=== PATIENT | female | born 1985 ===

== ENCOUNTER 2018-04-16 18:55 | Inpatient (IN) | payer OTHER ==
[2018-04-16] MEDS ORDERED: Penicillin G 5 Million Unit Vial IVPB ONE ×2 (19:24→19:39)
[2018-04-16] MEDS ORDERED: Oxytocin 30 UNIT 30 UNITS/500 ML BAG IV ONE ×2 (19:27→19:39)
[2018-04-16 19:31] VITALS: BMI 31.8
--- NOTE | 2018-04-16 19:33 | OBADHP ---
Datetime: 04/16/2018 19:27 Admit Comment, IP Provider: at 41weeks some pnc with no records came with c/o srom at 5 pm. pt was supposed to be induce in [facility] .c/o ctxs irr, no vb +fm obhx 3 x pmh de med pnv alll nkda ph de soch de ve 2-/-2 ssse +pool +nit a/p at 41weeks prom/labor admit o l_d npo/ivf labs pain man cont lior and efm pen g u dug screen anticiate Pelvic Type - PN: Adequate Extremities - PN: Normal Abdomen - PN: Normal Back - PN: Normal Breast - PN: Normal Lungs - PN: Normal Heart - PN: Normal Thyroid - PN: Normal Neurologic - PN: Normal HEENT - PN: Normal General - PN: Normal Amniotic Fluid Color, Provider: Clear Membranes, Provider: Ruptured Contraction Comments Provider: q1-4 IP Hx Assessment: No Care Vital Signs Provider: Within Normal Limits IP Chief Complaint: Uterine contractions; Suspected ruptured membranes Dilatation, Provider: 2 Effacement, Provider: 70 Station, Provider: -2 Genitourinary Exam: Normal DTRs - PN: Normal EGA AdmitDate IP: 41.0 IP Adm Impression: Term, intrauterine ; Ruptured Membranes IP Admit Plan: Admit to unit; Initiate labor protocol
[2018-04-16 20:28] LABS: BASO % 0.6 % (0.0-2.0); EOS # 0.2 K/uL (0.0-0.7); EOS % 3.1 % (0.0-4.0); HEMOGLOBIN 12.6 g/dL (11.0-16.0); LYMPH # 1.2 K/uL (1.0-4.3); LYMPH % 14.5 % (20.0-40.0); MEAN CELL VOLUME 78.1 fL (81.0-99.0); MEAN CORPUSCULAR HEMOGLOBIN 25.3 pg (27.0-31.0); MEAN CORPUSCULAR HGB CONC 32.4 g/dL (33.0-37.0); MEAN PLATELET VOLUME 7.4 fL (7.2-11.7); MONO # 0.6 K/uL (0.0-0.8); MONO % 7.1 % (0.0-10.0); NEUT % 74.7 % (50.0-75.0); NRBC % 0.1 % (0.0-2.0); RED CELL DISTRIBUTION WIDTH 16.9 % (11.5-14.5)
[2018-04-16 20:39] LABS: RAPID PLASMA REAGIN NONREACTIVE (NONREACTIVE)
[2018-04-16 20:40] LABS: SQUAMOUS EPITHIAL 3 /hpf (0-5); URINE AMORPHOUS SEDIMENT RARE /ul (<OCC); URINE BACTERIA RARE (<OCC); URINE BILIRUBIN NEGATIVE (NEGATIVE); URINE BLOOD NEGATIVE (NEGATIVE); URINE CLARITY Hazy (Clear); URINE COLOR Yellow (YELLOW); URINE GLUCOSE (UA) NORMAL (Normal); URINE LEUKOCYTE ESTERASE NEG Leu/uL (Negative); URINE PROTEIN NEGATIVE (NEGATIVE)
[2018-04-16 20:45] LABS: ALB/GLOB RATIO 1.3 (1.0-2.1); ALBUMIN 3.8 g/dL (3.5-5.0); ALT/SGPT 16 U/L (9-52); AST/SGOT 26 U/L (14-36); BLOOD UREA NITROGEN 7 mg/dL (7-17); CALCIUM 9.3 mg/dl (8.6-10.4); GFR NON-AFRICAN AMERICAN > 60
[2018-04-16] MEDS ORDERED: Nalbuphine HCL 10 mg/ml Ampule IVP PRN (20:59)
[2018-04-16 21:16] LABS: HEPATITIS B SURFACE AG Negative (NEGATIVE)
[2018-04-16] MEDS ORDERED: Nalbuphine HCL 10 mg/ml Ampule ONE (21:35)
--- NOTE | 2018-04-17 06:12 | OBPN ---
Datetime: 04/17/2018 06:10 IP Progress Impression: Normal progression of labor IP Procedures: Sterile Vag Exam Contraction Comments Provider: q1-4 FHR - Baseline A Provider: 130 IP Progress Note Comment: pt was examined at bed side ve fd/100/0 pt pushing her self Vital Signs Provider: Reviewed; Within Normal Limits NICHD Accel Fetus A IP Provider: 15X15 FHR Category Provider Fetus A: Category I NICHD Variability Prov Fetus A: Moderate 6-25bpm Dilatation, Provider: 10 Effacement, Provider: 100 Station, Provider: 0 Datetime: 04/16/2018 19:27 Membranes, Provider: Ruptured Amniotic Fluid Color, Provider: Clear
[2018-04-17] MEDS ORDERED: cefOXitin IV 2 gm in Dextrose 0 GM/0 ML BAG IVPB ONE (07:09)
[2018-04-17] MEDS ORDERED: Sodium Citrate/Citric Acid 15 ml Sol ONE (07:10)
[2018-04-17] MEDS ORDERED: Lidocaine 2% MPF (5 ml) Inj ONE ×4 (08:17→08:37)
[2018-04-17] MEDS: Oxycodone/Acetaminophen 5/325 mg Tab PO PRN ×2 (12:04→22:18)
--- NOTE | 2018-04-17 15:45 | OBDS ---
DELIVERY PERSONNEL Delivery Doctor: Allen Roche MD Staff Educator: JOSÉ moon Resident: Dr Eng MATERNAL INFORMATION Delivery Anesthesia: Local Medications in Delivery: pitocin Estimated Blood Loss (ml): 700 Placenta Cultured: No Maternal Complications: None Provider Comments: Patient is a G4 now P4 who delivered a viable male via vacuum assisted va ginal delivery over right mediolateral episiotomy. The infant's head was delivered in a controlled ma nner. Vacuum was then released. Loose nuchal cord x 1; easily reduced over the head. Infant's shoulde r's were delivered atraumatically. Infant's mouth and nose were suctioned with bulb syringe. Cord was doiubly clamped and cut. Cord gases and cord blood were collected and sent to the lab. An intact 3 v essel cord placenta was delivered. Mom and recovering in stable condition. Dr. Roche was pre sent for the entire delivery. Chely Eng DO PGY-2 Attending Note: I was present for the entire delivery having performed the vacuum-assist, as descr ibed above. I agree with the above as documented. LABOR SUMMARY EDC: 04/09/2018 00:00 No. Babies in Womb: 1 Attempted: No Labor Anesthesia: None LABOR INFORMATION Onset of Labor: 04/16/2018 16:00 Complete Dilatation: 04/17/2018 05:00 Other Ripening Agents: n/a Oxytocin: Induction Group B Beta Strep: UNKNOWN Antibiotics # of Doses: 3 Antibiotics Time of Last Dose: 0300 Steroids Given: None MEMBRANES Membranes Rupture Method: Spontaneous Rupture of Membranes: 04/16/2018 17:30 Length of Rupture (hrs): 14.53 Amniotic Fluid Color: Clear Amniotic Fluid Amount: Large Amniotic Fluid Odor: Normal STAGES OF LABOR Stage 1 hrs: 13 Stage 1 min: 0 Stage 2 hrs: 3 Stage 2 min: 2 Stage 3 hrs: 0 Stage 3 min: 13 Total Time in Labor hrs: 16 Total Time in Labor min: 15 VAGINAL DELIVERY Episiotomy: Right Mediolateral Laceration Extension: N/A Laceration Type: None Laceration Repair Note: Right mediolateral episiotomy was repaired with 2-0 vicryl, 2-0 chromic, and 3-0 chromic with anatomic reapproximation. Hemostasis achieved. Initial Vag Sharps Count: 4 Final Vag Sharps Count: 4 Sponge Count Correct: Yes Sharps Count Correct: Yes BABY A INFORMATION Infant Delivery Date/Time: 04/17/2018 08:02 Method of Delivery: Vaginal Born in Route : No : N/A Forceps: N/A Vacuum Extraction: Successful Shoulder Dystocia : No SHOULDER DYSTOCIA BABY A Infant Delivery Date/Time: 04/17/2018 08:02 PRESENTATION/POSITION BABY A Presentation: Cephalic Cephalic Presentation: Vertex Vertex Position: Left Occipital Anterior Breech Presentation: N/A PLACENTA INFORMATION BABY A Placenta Delivery Time : 04/17/2018 08:15 Placenta Method of Delivery: Spontaneous Placenta Status: Delivered SCORES BABY A Heart Rate 1 min: >100 bpm Resp Effort 1 min: Good Cry Reflex Irritability 1 min: Cough or Sneeze or Pulls Away Muscle Tone 1 min: Active Motion Color 1 min: Body [place], Extremities Blue Resuscitation Effort 1 min: Tactile Stimulation SCORE 1 MIN: 9 Heart Rate 5 min: >100 bpm Resp Effort 5 min: Good Cry Reflex Irritability 5 min: Cough or Sneeze or Pulls Away Muscle Tone 5 min: Active Motion Color 5 min: Body [place], Extremities Blue Resuscitation Effort 5 min: Tactile Stimulation SCORE 5 MIN: 9 INFANT INFORMATION BABY A Gestational Age at Delivery: 41.1 Gestational Status: Post-term Infant Outcome : Liveborn Infant Condition : Stable Sex: Male IDENTIFICATION/MEDS BABY A ID Band Number: [id number] ID Band Location: Right Leg; Left Leg Sensor Applied: Yes Sensor Number: [id number] Sensor Location : Cord Clamp Vitamin K Given : Aquamephyton 1 mg IM Erythromycin Given: Given Both Eyes WEIGHT/LENGTH BABY A Birthweight (gms): 4020 Weight (lb): 8 Infant Weight (oz): 14 Length Inches: 21.75 Infant Length cms: 55.2 CORD INFORMATION BABY A No. Cord Vessels: 3 Nuchal Cord : Around Neck x1, Tight Cord Blood Taken: Yes Suction: Mouth; Nose ASSESSMENT BABY A Infant Complications: None Physical Findings at Delivery: Caput Succedaneum Respirations: Appears Normal Pharmacist Hospital[facility] Called : No Care By: Dr Marinelli Transferred To: Remains with Mother
--- NOTE | 2018-04-17 19:00 | OBPPN ---
Datetime: 04/17/2018 18:44 PP Progress Note Prov: Notified by R.N. - patient c/o tingling "from the knee to my toes" on the lef t Patient received in bed, room 462, on her chest ([id number]); patient's mother also pres ent Patient reports the "tingling" sensation started at approximately 0200 hours, while in active labo r and prior to full dilatation and pushing. Patient describes the following sensations: "pins and nee dles, like when you sit with your legs cross-legged and it falls asleep. You know it's there, but it doesn't feel quite like it". Patient has been out of bed to the bathroom, voiding without difficult. Reports "I know my leg is there, because I am looking at it, but I don't feel it." re: motor strength - reports had one episode of her left leg "buckling" under her. "I put all my weight on my right leg " Limited P.E.: - Extremities: symmetric. no calf tenderness. Good color. Warm; (+) pedal pulses. Decreased sensat ion to "pinprick" with a pen. Decreased motor strength when compared to right (upon command to "pres s gas pedal") Assessment: PPD#0, 32 y.o. , S/P vacuum-assisted vaginal delivery with decreased sensory and motor strength of left lower extremitiy. Patient advised to have assistance in ambulating. Will obta in consultation with neurology for the morning. Patient expressed an understanding and agrees. Patie nt otherwise clinically stable. Plan: 1) Continue post care 2) Consult Neurology - Dr. Liam Duncan. Voice message left on [phone] at approximately 1840 hour s.
[2018-04-17] MEDS ORDERED: Albuterol HFA 90 mcg/actuation (8 g) INH PRN (22:38)
[2018-04-18] MEDS: Oxycodone/Acetaminophen 5/325 mg Tab PO PRN ×2 (06:36→21:39)
[2018-04-18 07:33] LABS: BASO # 0.1 K/uL (0.0-0.2); BASO % 0.4 % (0.0-2.0); EOS % 0.3 % (0.0-4.0); LYMPH # 1.8 K/uL (1.0-4.3); LYMPH % 12.2 % (20.0-40.0); MEAN CELL VOLUME 77.8 fL (81.0-99.0); MEAN CORPUSCULAR HGB CONC 33.5 g/dL (33.0-37.0); MEAN PLATELET VOLUME 7.5 fL (7.2-11.7); MONO % 6.7 % (0.0-10.0); NEUT # 11.9 K/uL (1.8-7.0); NEUT % 80.4 % (50.0-75.0); RBC 3.56 Mil/uL (3.80-5.20); RED CELL DISTRIBUTION WIDTH 16.4 % (11.5-14.5)
[2018-04-18 07:42] LABS: WHITE BLOOD COUNT 14.8 K/uL (4.8-10.8)
[2018-04-18 07:43] LABS: HEMOGLOBIN 9.3 g/dL (11.0-16.0)
[2018-04-18 07:56] LABS: ALB/GLOB RATIO 1.1 (1.0-2.1); ALBUMIN 2.6 g/dL (3.5-5.0); ALT/SGPT 25 U/L (9-52); AST/SGOT 73 U/L (14-36); BLOOD UREA NITROGEN 3 mg/dL (7-17); CALCIUM 8.7 mg/dl (8.6-10.4); GFR NON-AFRICAN AMERICAN > 60
[2018-04-18] MEDS: Potassium Chloride 20 mEq ER Tab PO SCH (09:43)
--- NOTE | 2018-04-18 11:50 | OBPPN ---
Datetime: 04/18/2018 07:37 PP Pain Prov: Within normal limits PP Nausea Prov: Denies PP Flatus Prov: Yes PP BM Prov: No PP Heart Prov: Normal PP Lungs Prov: Normal PP Abdomen/Uterus Prov: Normal PP Lochia Prov: Normal PP Extremities Prov: Abnormal PP C/S Incision Prov: Not Applicable PP Progress Prov: Normal PP Comments Phys Exam Prov: VSS Gen: AAOx3 in NAD lying comfortably in bed with baby Heart: RRR no murmurs appreciated Eyes: petechial hemmorhage noted bilaterally, denies blurry vision Abd: Soft, appropriately tender, + BS, fundal height 2 fingerbreadths above umbilicus presently Ext: no calf tenderness b/l, numbness in LLE from just above ankle distally, decreased sensation t o pinprick, patient reports improvement from yesterday. Plantarflexion 2/5, ROM limited, decreased se nsation along with pins and needles. DTR normal bilaterally. + pedal pulses. PP Impression Prov: Normal progression; Pain PP Plan Prov: Continue present management PP Progress Note Prov: Patient seen and examined at bedside. Patient complains of pain from the sutu res and an inability to sit directly on her buttock. Patient also reports numbness in LLE. Patient on Motrin and Percocet for pain control. Tolerating regular diet. Patient exclusively breast feeding. M inimal lochia reported. Denies chest pain, shortness of breath, fevers, chills. A_P: 32 F PPD#1 s/p R mediolateral episiotomy and vacuum assisted vaginal delivery of liveborn mal e - Stable - AM labs show signs of anemia > Oral Fe inititated. Leukocytosis likely due to marginalization. F /U repeat AM lab - Hypokalemia noted, repleted. F/U repeat AM lab - Encouraged patient to take her Motrin q6 and ask for Percocet as needed if pain uncontrolled - Encourage , ambulation only with assistance and observation when needing to use bat hroom. Fall precautions. Awaiting Neurology input for LLE complaints - Rectal hemmorhoids noted - Anusol prescribed. - Follow up control plans Patient seen, case reviewed and plan approved by Dr. Perez. Santi Whaley, PGY-1 Vital Signs Provider PP: Reviewed; Within Normal Limits
[2018-04-18] MEDS: Hydrocortisone 2.5% Rectal Cream(30 gm) PR SCH ×3 (12:45→21:38)
--- NOTE | 2018-04-18 17:40 | CP.PCM.CON ---
History of Present Illness - History of Present Illness History of Present Illness: Neurology Consultation Note: Consult requested by Dr. Kline Ms. Ivy is a 32-year-old woman who is s/p vaginal delivery that took place yesterday and at around 02:00 this morning, she complained of left lower extremity numbness and weakness. The patient states that the labor lasted about 14 hours and she did not use any anesthesia. She attempted to walk today, but fell due to weakness of the left leg. She has a hard time with hip flexion, knee flexion, foot eversion and feels that the lower part of her leg is numb. Review of Systems - Constitutional Constitutional: As Per HPI - EENT Eyes: absent: As Per HPI, Blind Spots, Blurred Vision, Change in Vision, Decreased Night Vision, Diplopia, Discharge, Dry Eye, Exophthalmos, Floaters, Irritation, Itchy Eyes, Loss of Peripheral Vision, Pain, Photophobia, Requires Corrective Lenses, Sees Flashes, Spots in Vision, Tunnel Vision, Other Visual Disturbances, Loss of Vision, Other Ears: absent: As Per HPI, Decreased Hearing, Ear Discharge, Ear Pain, Tinnitus, Abnormal Hearing, Disequilibrium, Dizziness, Other Nose/Mouth/Throat: absent: As Per HPI, Epistaxis, Nasal Congestion, Nasal Discharge, Nasal Obstruction, Nasal Trauma, Nose Pain, Post Nasal Drip, Sinus Pain, Sinus Pressure, Bleeding Gums, Change in Voice, Dental Pain, Dry Mouth, Dysphagia, Halitosis, Hoarsness, Lip Swelling, Mouth Lesions, Mouth Pain, Odynophagia, Sore Throat, Throat Swelling, Tongue Swelling, Facial Pain, Neck Pain, Neck Mass, Other - Cardiovascular Cardiovascular: absent: As Per HPI, Acrocyanosis, Chest Pain, Chest Pain at Rest, Chest Pain with Activity, Claudication, Diaphoresis, Dyspnea, Dyspnea on Exertion, Edema, Irregular Heart Rhythm, Pain Radiating to Arm/Neck/Jaw, Leg Edema, Leg Ulcers, Lightheadedness, Orthopnea, Palpitations, Paroxysmal Nocturnal Dyspnea, Pedal Edema, Radiating Pain, Rapid Heart Rate, Slow Heart Rate, Syncope, Other - Respiratory Respiratory: absent: As Per HPI, Cough, Dyspnea, Hemoptysis, Dyspnea on Exertion, Wheezing, Snoring, Stridor, Pain on Inspiration, Chest Congestion, Excessive Mucous Production, Change in Mucous Color, Pain with Coughing, Other - Menstruation Menstruation: As Per HPI - Musculoskeletal Musculoskeletal: absent: As Per HPI, Abnormal Gait, Arthralgias, Atrophy, Back Pain, Deformity, Joint Swelling, Limited Range of Motion, Loss of Height, Muscle Cramps, Muscle Weakness, Myalgias, Neck Pain, Numbness, Radiating Pain into Limb, Stiffness, Tingling, Other - Integumentary Integumentary: absent: As Per HPI, Acne, Alopecia, Bleeding Lesions, Change in Hair, Change in Nails, Change in Pigmentation, Changing Lesions, Dry Skin, Erythema, Furuncle, Hirsutism, Lesions, New Lesions, Non-Healing Lesions, Photosensitivity, Pruritus, Rash, Skin Pain, Skin Ulcer, Sores, Striae, Swelling, Unusual Bruising, Wounds, Jaundice, Other - Neurological Neurological: As Per HPI - Psychiatric Psychiatric: absent: As Per HPI, Abnormal Sleep Pattern, Anhedonia, Anxiety, Auditory Hallucinations, Behavioral Changes, Change in Appetite, Change in Libido, Confusion, Depression, Difficulty Concentrating, Hallucinations, Homicidal Ideation, Hopelessness, Irritability, Memory Loss, Mood Swings, Panic Attacks, Paranoia, Suicidal Ideation, Visual Hallucinations, Tactile Hallucinations, Other - Endocrine Endocrine: absent: As Per HPI, Change in Body Appearance, Change in Libido, Cold Intolorance, Deepening of Voice, Excessive Sweating, Fatigue, Flushing, Heat Intolorance, Increase in Ring/Shoe/Hat Size, Palpitations, Polydipsia, Polyphagia, Polyuria, Other - Hematologic/Lymphatic Hematologic: absent: As Per HPI, Easy Bleeding, Easy Bruising, Lymphadenopathy, Other Meds Allergies/Adverse Reactions: Allergies Allergy/AdvReac Type Severity Reaction Status Date / Time No Known Allergies Allergy Verified 04/16/18 19:24 - Medications Medications: Current Medications Acetaminophen (Tylenol 325mg Tab) 650 mg PO Q6 PRN PRN Reason: Fever >100.4 F Albuterol (Ventolin Hfa 90 Mcg/Actuation (8 G)) 2 puff INH RQ4 PRN PRN Reason: Wheezing Last Admin: 04/17/18 22:55 Dose: 2 puff Docusate Sodium (Colace) 100 mg PO BID [facility] Last Admin: 04/18/18 09:21 Dose: 100 mg Ferrous Sulfate (Feosol) 325 mg PO DAILY [facility] Last Admin: 04/18/18 09:36 Dose: 325 mg Hydrocortisone (Anusol-Hc) 0 gm WA BID [facility] Last Admin: 04/18/18 12:45 Dose: Not Given Ibuprofen (Motrin Tab) 600 mg PO Q6 PRN PRN Reason: Pain, Mild (1-3) Last Admin: 04/18/18 09:38 Dose: 600 mg Oxycodone/Acetaminophen (Percocet 5/325 Mg Tab) 1 tab PO Q4H PRN PRN Reason: Pain, moderate (4-7) Stop: 04/20/18 08:07 Last Admin: 04/18/18 06:36 Dose: 1 tab Potassium Chloride (K-Dur 20 Meq Er Tab) 40 meq PO DAILY [facility] Last Admin: 04/18/18 09:43 Dose: 40 meq Physical Exam - Constitutional Appears: Well - Head Exam Head Exam: ATRAUMATIC, NORMAL INSPECTION, NORMOCEPHALIC - Eye Exam Eye Exam: EOMI, Normal appearance, PERRL Pupil Exam: NORMAL ACCOMODATION, PERRL - ENT Exam ENT Exam: Mucous Membranes Moist, Normal Exam - Neck Exam Neck exam: Positive for: Normal Inspection - Respiratory Exam Respiratory Exam: Clear to Auscultation Bilateral, NORMAL BREATHING PATTERN - Cardiovascular Exam Cardiovascular Exam: REGULAR RHYTHM, +S1, +S2 - GI/Abdominal Exam GI & Abdominal Exam: Normal Bowel Sounds, Soft. absent: Tenderness - Extremities Exam Extremities exam: Positive for: normal inspection - Back Exam Back exam: NORMAL INSPECTION - Neurological Exam Neurological exam: Alert, CN II-XII Intact, Normal Gait, Oriented x3, Reflexes Normal Additional comments: Decreased sensation of the left lower extremity below the knee, weakness in extension of the left leg at the him and leg raising. Weakness in eversion of the left foot. Weakness in dorsiflexion of left foot. - Psychiatric Exam Psychiatric exam: Normal Affect, Normal Mood - Skin Skin Exam: Dry, Intact, Normal Color, Warm Results - Vital Signs Recent Vital Signs: Last Vital Signs Temp 98 F 04/18/18 08:00 Pulse 72 04/18/18 08:00 Resp 20 04/18/18 08:00 BP 111/69 04/18/18 08:00 Pulse Ox 98 04/18/18 08:00 - Labs Result Diagrams: 04/18/18 07:21 02/01/19 07:21 Labs: Laboratory Results - last 24 hr 04/18/18 04/18/18 07:21 07:21 WBC 14.8 H D RBC 3.56 L Hgb 9.3 L D Hct 27.7 L MCV 77.8 L MCH 26.0 L MCHC 33.5 RDW 16.4 H Plt Count 207 MPV 7.5 Neut % (Auto) 80.4 H Lymph % (Auto) 12.2 L [place] % (Auto) 6.7 Eos % (Auto) 0.3 Baso % (Auto) 0.4 Neut # (Auto) 11.9 H Lymph # (Auto) 1.8 [place] # (Auto) 1.0 H Eos # (Auto) 0.0 Baso # (Auto) 0.1 Sodium 134 Potassium 3.1 L Chloride 106 Carbon Dioxide 25 Anion Gap 6 L BUN 3 L Creatinine 0.5 L Est GFR ( Amer) > 60 Est GFR (Non-Af Amer) > 60 Random Glucose 77 D Calcium 8.7 Total Bilirubin 0.5 AST 73 H D ALT 25 Alkaline Phosphatase 139 H D Total Protein 4.8 L Albumin 2.6 L D Globulin 2.2 Albumin/Globulin Ratio 1.1 Assessment & Plan (1) Femoral nerve injury Assessment and Plan: The injury may have resulted from positioning during the long labor leading to compression at the inguinal canal. I recommend PT/OT eval and treatment. If the patient does not improve in two weeks, EMG/NCS can be done as an outpatient. Thank you for this consultation. Status: Acute
[2018-04-19] MEDS: Oxycodone/Acetaminophen 5/325 mg Tab PO PRN ×2 (05:27→13:03)
[2018-04-19 08:21] LABS: BASO # 0.1 K/uL (0.0-0.2); BASO % 0.8 % (0.0-2.0); EOS # 0.3 K/uL (0.0-0.7); HEMOGLOBIN 9.8 g/dL (11.0-16.0); LYMPH # 2.2 K/uL (1.0-4.3); LYMPH % 22.3 % (20.0-40.0); MEAN CORPUSCULAR HEMOGLOBIN 25.9 pg (27.0-31.0); MEAN CORPUSCULAR HGB CONC 32.8 g/dL (33.0-37.0); MEAN PLATELET VOLUME 7.4 fL (7.2-11.7); MONO # 0.6 K/uL (0.0-0.8); MONO % 6.3 % (0.0-10.0); NEUT # 6.5 K/uL (1.8-7.0); NEUT % 67.6 % (50.0-75.0); NRBC % 0.1 % (0.0-2.0); RBC 3.79 Mil/uL (3.80-5.20); RED CELL DISTRIBUTION WIDTH 16.6 % (11.5-14.5); WHITE BLOOD COUNT 9.7 K/uL (4.8-10.8)
[2018-04-19 08:42] LABS: ALB/GLOB RATIO 1.1 (1.0-2.1); ALBUMIN 2.7 g/dL (3.5-5.0); ALT/SGPT 31 U/L (9-52); AST/SGOT 62 U/L (14-36); BLOOD UREA NITROGEN 5 mg/dL (7-17); CALCIUM 8.9 mg/dl (8.6-10.4); GFR NON-AFRICAN AMERICAN > 60
[2018-04-19] MEDS ORDERED: Hydrocortisone-Pramoxine 1%-1% Foam(10 gm) TOP SCH (09:00)
[2018-04-19] MEDS: Potassium Chloride 20 mEq ER Tab PO SCH (09:16)
--- NOTE | 2018-04-19 10:06 | OBPPN ---
Datetime: 04/19/2018 09:52 PP Pain Prov: Within normal limits PP Nausea Prov: Denies PP Flatus Prov: Yes PP BM Prov: No PP Breasts Prov: Normal PP Heart Prov: Normal PP Lungs Prov: Normal PP Abdomen/Uterus Prov: Normal PP Lochia Prov: Normal PP Vulva/Perineum Prov: Abnormal PP CVA Tenderness Prov: Normal PP Extremities Prov: Abnormal PP C/S Incision Prov: Not Applicable PP Progress Prov: Normal PP Comments Phys Exam Prov: HEENT: bilateral scleral petechial hemorrhage Abdomen: Soft. nondistended.. Fundus firm, at umbilicus. Minimal lochia. Perineum: (+) extrernal hemorrhoid - tender; mildly firm. Extremities: no calf tenderness. (+) weakness left leg and tingling to left toes All other systems reviewed and are negative PP Impression Prov: Normal progression PP Plan Prov: Continue present management PP Progress Note Prov: Patient received in room 462, lying on right side. exclusively. Reports pain in rectum from hemorrhoids. No other complaints P.E.: as above. WD in NAD. Awake, alert, oriented to time, person and place - 2/2: H/H 9.8/29.9 Potassium = Assessment: PPD#2, 32 y.o. P4, S/P vacuum-assisted vaginal delivery. 1) Femoral nerve injury - S/P neurology evaluation - appreciated. Recommended also noted and appre ciated 2) External hemorrhoid - no improvement with Anusol; will switch to Proctofoam and implement warm Sitz baths. If no improvement, will get general surgery consult 3) Hypokalemia - being replaced. K+ = 3.7 4) Anemia - stable. Patient is asymptomatic Plan: 1) F/O PT/OT consult 2) Continue current post managemant IP PP Procedures: None Vital Signs Provider PP: Reviewed; Within Normal Limits
[2018-04-19] MEDS ORDERED: Influenza Vaccine 60 mcg/0.5 mL SYR (4YR UP) IM ONE (10:20)
[2018-04-19 16:32] VITALS: RESP 18
[2018-04-19 22:23] VITALS: BP 105/65; PULSE 98; TEMP 97.1; O2SAT 99
--- NOTE | 2018-04-19 22:46 | OBDCSUM ---
Datetime: 04/19/2018 14:01 Discharged to, Provider: Home Follow up at, Provider: Koki Keller Instr Activity: Normal activity; May Shower Disch Instr Diet: Regular Discharge Diet restrict Prov: none Discharge Instructions, Provider: Specific instructions as noted Discharge Diagnosis, Provider: Postterm Delivery Discharge Time: 04/19/2018 14:01 Follow up in weeks, Provider: 6 weeks Contraception discussed, Prov: Yes Disch Activity Restrictions: No exercising; No lifting; No driving; No sexual activity; Nothing in v agina - [place], tampons, douche Discharge Diagnosis Prov Other: Femoral nerve injury Acute blood loss anemia Contraception counseling Contraception after Delivery: Tubal Ligation
--- NOTE | 2018-04-19 22:46 | OBPPN ---
Datetime: 04/19/2018 22:31 PP Progress Note Prov: Addendum 1445 hours - patient was evaluated by physical therapy and was cleared for discharge home with the followin) cane 2) physical therapy 3 times a week for 4 weeks. Also, patient reported slight improvement in hemorrhoidal pain with Proctofoam. Patient is clinically stable. Plan: 1) Discharge home 2) See full discharge instructions
== END 2018-04-19 18:21 | disposition home or self-care (01) | DRG 372 ==
LOC: C.EROB 18:55 → C.4D 19:25 → C.4M 04-17 11:13
PROVIDERS: ADMIT Obstetrics & Gynecology; ATTEND Obstetrics & Gynecology
PROC: 10D07Z6 Extraction of Products of Conception, Vacuum, Via Natural or Artificial Opening (ICD-10-PCS; principal; 2018-04-16)
PROC: 0W8NXZZ Division of Female Perineum, External Approach (ICD-10-PCS; 2018-04-16)
DX: O42.90 Premature rupture of membranes, unspecified as to length of time between rupture and onset of labor, unspecified weeks of gestation (principal); O99.02 Anemia complicating childbirth; D62 Acute posthemorrhagic anemia; E87.6 Hypokalemia; O69.1XX0 Labor and delivery complicated by cord around neck, with compression, not applicable or unspecified; O99.12 Other diseases of the blood and blood-forming organs and certain disorders involving the immune mechanism complicating childbirth; O99.284 Endocrine, nutritional and metabolic diseases complicating childbirth; O9A.22 Injury, poisoning and certain other consequences of external causes complicating childbirth; Z30.09 Encounter for other general counseling and advice on contraception; Z37.0 Single live birth; O48.0 Post-term pregnancy; D72.829 Elevated white blood cell count, unspecified; K64.9 Unspecified hemorrhoids; S74.10XA Injury of femoral nerve at hip and thigh level, unspecified leg, initial encounter; Z3A.41 41 weeks gestation of pregnancy